=== PATIENT | female | born 1985 | race Hispanic/Latino ===

== ENCOUNTER 2017-04-12 15:10 | Observation (INO) | payer MEDICAID ==
[~2017-04-12] VITALS: Ht 160 cm; Wt 97.5 kg
[2017-04-12 16:27] LABS: APPEARANCE,URINE Clear (CLEAR); BILIRUBIN,URINE Negative (NEGATIVE); COLOR,URINE Yellow (YELLOW); GLUCOSE, URINE (UA) Negative (NEGATIVE); KETONES,URINE >=80 mg/dL (NEGATIVE); LEUKOCYTE ESTERASE ,URINE Trace (NEGATIVE); NITRATE,URINE Negative (NEGATIVE); OCCULT BLOOD,URINE Negative (NEGATIVE); PH,URINE 5.5 (5.0-8.0); PROTEIN,URINE Negative (NEGATIVE); UROBILINOGEN,URINE 0.2 mg/dL (0.2-1.0)
[2017-04-12 16:47] LABS: BACTERIA,URINE Few /HPF (None Seen); RBC,URINE None Seen /HPF (0-1); WBC,URINE 0-1 /HPF (0-1)
[2017-04-12] MEDS: LACTATED RINGERS 1000ML 1,000 ML IV PRN (17:30)
[2017-04-12 17:33] LABS: HEMATOCRIT 35.4 % (36-48); MEAN CORPUSCULAR HEMOGLOBIN 30.2 pg (27.0-33.0); MEAN CORPUSCULAR HGB CONC 34.7 g/dL (32.0-36.0); MEAN CORPUSCULAR VOLUME 87.2 fL (79-99); PLATELET COUNT (AUTO) 255 K/uL (130-400); RED BLOOD CELL COUNT(AUTO) 4.06 MIL/uL (4.00-5.50); RED CELL DISTRIBUTION WIDTH 12.7 % (11.0-15.5); WHITE BLOOD COUNT (AUTO) 10.4 K/uL (4.8-10.8)
[2017-04-13] MEDS: LACTATED RINGERS 1000ML 1,000 ML IV PRN (01:09)
[2017-04-14 08:36] LABS: HEPATITIS Bs ANTIGEN SCREEN P Negative (Negative)
== END 2017-04-13 08:05 | disposition home or self-care (01) ==
LOC: LDH 15:10 → WSH 17:11
PROVIDERS: ADMIT Specialist; ATTEND Specialist
DX: O41.03X0 Oligohydramnios, third trimester, not applicable or unspecified (principal); Z3A.37 37 weeks gestation of pregnancy
CPT/HCPCS: 36415; 76819; 81001; 85027; 86592; 86850; 86900; 86901; 87340; 96360; 96361 ×4; G0378 ×18; J7120 ×2

== ENCOUNTER 2017-04-15 14:54 | Inpatient (IN) | payer MEDICAID ==
[2017-04-15] MEDS ORDERED: DINOPROSTONE 10 MG VAGINAL SUPP ONE (15:37)
[2017-04-15] MEDS ORDERED: LACTATED RINGERS 1000ML 1,000 ML IV ONE (23:06)
[2017-04-15] MEDS ORDERED: LACTATED RINGERS 1000ML 1,000 ML IV PRN (23:52)
[2017-04-16] MEDS ORDERED: MEPERIDINE-PF 50 MG/ML SYG IVP PRN
[2017-04-16] MEDS ORDERED: PROMETHAZINE HCL 25 MG/ML 1ML AMPULE IM PRN
[2017-04-16] MEDS ORDERED: ROPIVACAINE 0.2%200ML EPIDURAL 200 ML EP SCH
[2017-04-16] MEDS ORDERED: NALOXONE HCL 0.4 MG/1 ML ML IV PRN
[2017-04-16] MEDS ORDERED: EPHEDRINE SULFATE 50 MG/ML AMPULE IVP PRN
[2017-04-16] MEDS ORDERED: LACTATED RINGERS 500 ML 500 ML IV PRN
[2017-04-16 00:22] LABS: HEMATOCRIT 31.3 % (36-48); MEAN CORPUSCULAR HEMOGLOBIN 30.1 pg (27.0-33.0); MEAN CORPUSCULAR HGB CONC 34.2 g/dL (32.0-36.0); MEAN CORPUSCULAR VOLUME 87.9 fL (79-99); PLATELET COUNT (AUTO) 226 K/uL (130-400); RED BLOOD CELL COUNT(AUTO) 3.56 MIL/uL (4.00-5.50); RED CELL DISTRIBUTION WIDTH 13.2 % (11.0-15.5); WHITE BLOOD COUNT (AUTO) 7.9 K/uL (4.8-10.8)
[2017-04-16] MEDS ORDERED: LACTATED RINGERS 1000ML 1,000 ML IV ONE (06:16)
[2017-04-16] MEDS ORDERED: OXYTOCIN 10 USP UNITS/ML ONE ×2 (06:17→13:44)
[2017-04-16] MEDS ORDERED: OXYTOCIN 10 USP UNITS/ML 20 UNIT in LACTATED RINGERS 1000ML 1,000 ML IV SCH (07:00)
[2017-04-16] MEDS ORDERED: ACETAMINOPHEN-CODEINE 300/30MG TAB PO PRN (12:30)
[2017-04-16] MEDS ORDERED: MEASLES/MUMPS/RUBELLA VACCINE, LIVE 0.5 ML/VIAL SQ PRN (12:30)
[2017-04-16] MEDS ORDERED: LANOLIN 30GM OINTMENT TP PRN (12:30)
[2017-04-16] MEDS ORDERED: BENZOCAINE/LANOLIN/ALOE VERA 60 ML AEROSOL TP PRN (12:30)
[2017-04-16] MEDS ORDERED: WITCH HAZEL 1 PAD TP PRN (12:30)
[2017-04-16] MEDS ORDERED: DIPH,PERTUSS(ACELL),TET VAC/PF 0.5 ML VIAL IM PRN (12:30)
[2017-04-16 14:20] VITALS: BP 133/73
[2017-04-16] MEDS: IBUPROFEN 800 MG TAB PO PRN (15:02)
[2017-04-16 15:55] VITALS: BP 105/63
[2017-04-16 19:50] VITALS: BP 128/65
[2017-04-16] MEDS: DOCUSATE SODIUM 100 MG CAP PO SCH (20:55)
[2017-04-16 23:04] VITALS: BP 114/54
[2017-04-17 03:15] VITALS: BP 95/59
[2017-04-17 07:11] LABS: HEPATITIS Bs ANTIGEN SCREEN P Negative (Negative)
[2017-04-17 07:42] VITALS: BP 115/69
[2017-04-17] MEDS: DOCUSATE SODIUM 100 MG CAP PO SCH (09:53)
[2017-04-17] MEDS: IBUPROFEN 800 MG TAB PO PRN (09:54)
[2017-04-17 11:16] VITALS: BP 100/61
== END 2017-04-17 12:35 | disposition home or self-care (01) | DRG 560 ==
LOC: LDH 14:54 → OBSVTOIN 23:52 → WSH 04-16 14:20
PROVIDERS: ADMIT Specialist; ATTEND Specialist
PROC: 10E0XZZ Delivery of Products of Conception, External Approach (ICD-10-PCS; principal; 2017-04-16)
PROC: 0UQGXZZ Repair Vagina, External Approach (ICD-10-PCS; 2017-04-16)
PROC: 3E0R3BZ Introduction of Anesthetic Agent into Spinal Canal, Percutaneous Approach (ICD-10-PCS; 2017-04-16)
PROC: 00HU33Z Insertion of Infusion Device into Spinal Canal, Percutaneous Approach (ICD-10-PCS; 2017-04-16)
PROC: 3E0234Z Introduction of Serum, Toxoid and Vaccine into Muscle, Percutaneous Approach (ICD-10-PCS; 2017-04-16)
PROC: 3E0134Z Introduction of Serum, Toxoid and Vaccine into Subcutaneous Tissue, Percutaneous Approach (ICD-10-PCS; 2017-04-16)
DX: O41.03X0 Oligohydramnios, third trimester, not applicable or unspecified (principal); O71.4 Obstetric high vaginal laceration alone; Z37.0 Single live birth; Z3A.38 38 weeks gestation of pregnancy
CPT/HCPCS: 36415; 76819; 81001; 85027; 86592; 86850; 86900; 86901; 87340; 90715; 96360; 96361; A4314; G0378; J2175; J2550; J2590; J7120

== ENCOUNTER 2018-12-04 09:06 | Observation (INO) | payer MEDICAID ==
[2018-11-30 15:57] VITALS: BP 112/62
[2018-11-30 16:07] LABS: BASOPHILS % (AUTO) 0.2 % (0.0-5.0); EOSINOPHILS % (AUTO) 1.7 % (0.0-8.0); HEMATOCRIT 37.4 % (36-48); LYMPHOCYTES % (AUTO) 27.8 % (21.0-51.0); MEAN CORPUSCULAR HEMOGLOBIN 30.5 pg (27.0-33.0); MEAN CORPUSCULAR HGB CONC 34.1 g/dL (32.0-36.0); MEAN CORPUSCULAR VOLUME 89.3 fL (79-99); MONOCYTES % (AUTO) 8.2 % (3.0-13.0); NEUTROPHILS % (AUTO) 62.1 % (40.0-77.0); PLATELET COUNT (AUTO) 297 K/uL (130-400); RED BLOOD CELL COUNT(AUTO) 4.18 MIL/uL (4.00-5.50); RED CELL DISTRIBUTION WIDTH 12.9 % (11.0-15.5); WHITE BLOOD COUNT (AUTO) 7.8 K/uL (4.8-10.8)
[~2018-12-04] VITALS: Ht 162.6 cm; Wt 88.0 kg
[2018-12-04] VITALS (31 sets, daily range): BP systolic 100–145; BP diastolic 50–84
[2018-12-04] MEDS ORDERED: LACTATED RINGERS 1000ML 1,000 ML IV ONE (09:43)
[2018-12-04] MEDS ORDERED: ROCURONIUM 10MG/1ML SYR 10 MG/ML ML ONE (09:47)
[2018-12-04] MEDS ORDERED: MIDAZOLAM HCL 1 MG/ML 2ML VIAL ONE (09:47)
[2018-12-04] MEDS ORDERED: FENTANYL CITRATE PF 50 MCG/1 ML 2ML VIAL ONE ×3 (09:47→13:01)
[2018-12-04] MEDS ORDERED: PROPOFOL 10 MG/ML 20ML VIAL IV ONE (09:47)
[2018-12-04] MEDS ORDERED: DEXAMETHASONE SOD PHOSPHATE 10MG/ML 1ML VIAL ONE (09:47)
[2018-12-04] MEDS ORDERED: LIDOCAINE PF 2% 5ML ABBOJECT ONE (09:47)
[2018-12-04] MEDS ORDERED: ONDANSETRON HCL 4 MG/2 ML VIAL ONE (09:47)
[2018-12-04] MEDS ORDERED: SUCCINYLCHOLINE 200MG/10ML SYR ONE (09:49)
[2018-12-04] MEDS ORDERED: NEOSTIGMINE 5MG/5ML SYR IV ONE (10:53)
[2018-12-04] MEDS ORDERED: GLYCOPYRROLATE 1 MG/5 ML SYRINGE ONE (10:53)
[2018-12-04] MEDS ORDERED: MEPERIDINE-PF 25 MG/ML SYG ONE ×2 (11:15→11:42)
[2018-12-04] MEDS ORDERED: KETOROLAC TROMETHAMINE 30MG/ML ONE (11:30)
--- NOTE | 2018-12-04 12:40 | NUR ---
ASSESSMENT RECEIVED PT FROM ZACHARIAH MUIR. PT C/O PAIN TO ABD. ABD SOFT TOUCH. DRSG TO ABD DRY AND INTACT. NO BLEEDING, OOZING NOTED. BS X4 PRESENT
--- NOTE | 2018-12-04 12:43 | NUR ---
PAIN DR. SYLVESTER MADE AWARE OF PTS PAIN RATING AND STATING HOW SHE PAIN TO LOWER LEFT ABD THAT RADIATES TO BACK. INFORMED OF ALL MEDS GIVEN IN PACU. ORDERS RECEIVED TO GIVE TYLENOL WITH CODEINE 2PILLS PO NOW AND FENTANYL 25MCG IVP NOW ALONG WITH ABDOMINAL BINDER IN PLACE
[2018-12-04] MEDS ORDERED: FENTANYL CITRATE PF 50 MCG/1 ML 2ML VIAL IVP ONE (13:00)
[2018-12-04] MEDS ORDERED: ACETAMINOPHEN-CODEINE 300/30MG TAB PO ONE (13:00)
[2018-12-04] MEDS ORDERED: ACETAMINOPHEN-CODEINE 300/30MG TAB ONE (13:00)
--- NOTE | 2018-12-04 13:05 | NUR ---
ABDOMINAL BINDER ABDOMINAL BINDER PUT IN PLACE TO ABDOMEN. DRSGS DRY AND INTACT. NO BLEEDING, SWELLING NOTED. ABD SOFT TO TOUCH. BS X4 PRESENT
--- NOTE | 2018-12-04 13:30 | NUR ---
EVALUATION DR. SYLVESTER HERE TO EVALUATE PT. ORDERS RECEIVED TO HAVE PT ADMITTED FOR PAIN CONTROL.
[2018-12-04] MEDS ORDERED: NALOXONE HCL 0.4 MG/1 ML ML IVP PRN (14:00)
[2018-12-04] MEDS ORDERED: ONDANSETRON HCL 4 MG/2 ML VIAL IV PRN (14:00)
[2018-12-04] MEDS ORDERED: DEXTROSE 5%-LACTATED RINGERS 1,000 ML IV SCH (14:00)
[2018-12-04] MEDS ORDERED: PROMETHAZINE HCL 25 MG/ML 1ML AMPULE IM PRN (14:00)
[2018-12-04] MEDS ORDERED: DIPHENHYDRAMINE HCL 25 MG CAPSULE PO PRN (14:00)
--- NOTE | 2018-12-04 14:07 | NUR ---
TRANSFER PT TRANSFERRED TO ROOM 110 VIA STRETCHER. REPORT GIVEN TO Alton KENDALL RN PT STILL RATES PAIN A 10 ON 10 SCALE.
[2018-12-04] MEDS ORDERED: MORPHINE-NS 50 MG/50 ML 50 ML IV ONE (14:51)
[2018-12-04] MEDS ORDERED: FLU VACC QS2019-20 36MOS UP/PF 60 MCG/0.5 ML ML IM ONE (19:00)
--- NOTE | 2018-12-04 20:35 | NUR ---
STATUS RESTING QUIETLY W/EYES CLOSED, ASSISTED TO BR TO VOID, TOLERATED WELL, ENCOURAGED TO AMBULATE AND TURN SIDE TO SIDE, NOT PASSING FLATUS Addendum: 12/05/18 at 0051 by BETTY MOREL LVN Amended: Links added.
[2018-12-05 03:40] VITALS: BP 93/49
--- NOTE | 2018-12-05 03:40 | NUR ---
ACTIVITY UP TO BR, ENCOURAGED TO AMBULATE IN HALLWAY, HAS NOT AMBULATED THIS SHIFT, NOT PASSING FLATUS Addendum: 12/05/18 at 0441 by BETTY MOREL LVN Amended: Links added.
[2018-12-05 06:44] LABS: BASOPHILS % (AUTO) 0.2 % (0.0-5.0); EOSINOPHILS % (AUTO) 1.7 % (0.0-8.0); HEMATOCRIT 35.1 % (36-48); LYMPHOCYTES % (AUTO) 22.9 % (21.0-51.0); MEAN CORPUSCULAR HEMOGLOBIN 30.7 pg (27.0-33.0); MEAN CORPUSCULAR HGB CONC 34.1 g/dL (32.0-36.0); MONOCYTES % (AUTO) 7.7 % (3.0-13.0); NEUTROPHILS % (AUTO) 67.5 % (40.0-77.0); PLATELET COUNT (AUTO) 238 K/uL (130-400); RED CELL DISTRIBUTION WIDTH 12.8 % (11.0-15.5); WHITE BLOOD COUNT (AUTO) 8.4 K/uL (4.8-10.8)
[2018-12-05] MEDS ORDERED: FLU VACC QS2019-20 36MOS UP/PF 60 MCG/0.5 ML ML IM SCH (06:44)
[2018-12-05] MEDS ORDERED: IBUPROFEN 800 MG TAB ONE (09:51)
--- NOTE | 2018-12-05 10:20 | NUR ---
DISCHARGE PT LEFT UNIT AMBULATING, ACCOMPANIED BY SIGNIFICANT OTHER. DENIED PAIN AND HAD NO COMPLAINTS AT THIS TIME. TRANSPORTED BY PERSONAL VEHICLE.
== END 2018-12-05 10:20 | disposition home or self-care (01) ==
LOC: DAH 09:06 → DAHIP 09:07 → DAH 09:07 → WSH 14:38
PROVIDERS: ADMIT Specialist; ATTEND Specialist
DX: Z30.2 Encounter for sterilization (principal); N83.202 Unspecified ovarian cyst, left side; Z23 Encounter for immunization
CPT/HCPCS: 36415 ×3; 58671; 84703; 85025 ×2; 86850 ×2; 86900 ×2; 86901 ×2; 90471; 96365; 96366; A4215 ×2; A4221; A4222; A4223; A4264; A4351; A4663; A6260; C1769 ×3; G0378 ×20; J0330; J1100; J1885; J2001; J2175 ×2; J2250; J2270; J2405; J2704; J2710; J3010 ×3; J3490; J7120